=== PATIENT | male | born 1980 | race African-American/Black ===

== ENCOUNTER 2018-02-28 15:22 | Emergency (ER) | payer OTHER ==
[~2018-02-28] VITALS: Ht 177.8 cm; Wt 90.9 kg
[2018-02-28] MEDS ORDERED: NS 1,000 ML IV ONE (15:45)
[2018-02-28 16:06] LABS: BASO % 0.2 % (0.0-1.0); EOS % 0.4 % (0.0-3.0); HEMATOCRIT 43.6 % (42.0-52.0); HEMOGLOBIN 14.2 g/dl (13.5-17.5); LYMPH # 0.8 10^3/uL (1.5-4.5); LYMPH % 9.1 % (24.0-44.0); MEAN CORPUSCULAR HEMOGLOBIN 26.4 pg (27.0-33.0); MEAN CORPUSCULAR HGB CONC 32.6 g/dl (32.0-36.5); MONO # 0.5 10^3/uL (0.0-0.8); MONO % 5.1 % (0.0-5.0); NEUTROPHILS # 7.9 10^3/uL (1.8-7.7); NEUTROPHILS % 84.9 % (36.0-66.0); PLATELET COUNT, AUTOMATED 164 10^3/uL (150-450); RED BLOOD COUNT 5.38 10^6/uL (4.30-6.10); WHITE BLOOD COUNT 9.3 10^3/uL (4.0-10.0)
[2018-02-28 16:27] LABS: ALBUMIN 4.4 GM/DL (3.2-5.2); ALT/SGPT 24 U/L (12-78); BILIRUBIN,DIRECT 0.3 MG/DL (0.0-0.2); BILIRUBIN,TOTAL 1.8 MG/DL (0.2-1.0); BLOOD UREA NITROGEN 8 MG/DL (7-18); C REACTIVE PROTEIN QUANTITATIV 2.28 MG/DL (0.00-0.30); CALCIUM LEVEL 9.5 MG/DL (8.5-10.1); CARBON DIOXIDE LEVEL 30 MEQ/L (21-32); CHLORIDE LEVEL 101 MEQ/L (98-107); CREATININE FOR GFR 1.06 MG/DL (0.70-1.30); GLOMERULAR FILTRATION RATE > 60.0 (>60); GLUCOSE, FASTING 82 MG/DL (70-100); POTASSIUM SERUM 3.6 MEQ/L (3.5-5.1); SODIUM LEVEL 137 MEQ/L (136-145); TOTAL PROTEIN 7.3 GM/DL (6.4-8.2)
[2018-02-28] MEDS ORDERED: ISOVUE-370 76% 100ML VIAL (Q9967) As Ordered ONE (16:38)
[2018-02-28 17:53] LABS: ERYTHROCYTE SEDIMENTATION RATE 5 mm/hr (0-15)
[2018-02-28] MEDS ORDERED: dexameTHASONE 4 MG/ML 1ML VIAL (J1100) IV ONE (18:00)
[2018-02-28 18:03] LABS: MONO REFLEX EBV COMP NEGATIVE (NEGATIVE)
[2018-02-28] MEDS ORDERED: PRED20TA PO (18:15)
[2018-02-28] MEDS ORDERED: AUGM875T28 PO (18:18)
[2018-02-28 18:22] VITALS: BP 125/62
--- NOTE | 2018-03-01 06:53 | REP ---
Soft-tissue neck CT study: With IV contrast. Tree: Swelling in the throat. Rule out peritonsillar abscess. CT contrast dose: 75 ml of intravenous Isovue [address] findings: The right tonsil is enlarged compared to the left. There is a low-density 10 mm by 16 mm polyp along the posterior aspect of the uvula noted presumably incidentally. There is right retropharyngeal, right peritonsillar and right supraglottic edema and phlegmonous reaction with ill-defined low density areas in this distribution. No enhancing margin is seen to suggest a walled off abscess. Fairly extensive swelling is seen in this distribution on the right side of the neck and there is mild narrowing of the hypopharynx . The epiglottis has a normal thickness, but the right aryepiglottic fold is thickened. There is a low-density area in the right vallecula. Glottic and subglottic airway are unremarkable. Thyroid, submandibular, and parotid glands are normal and symmetric. Visualized paranasal sinuses are clear. Floor of mouth and tongue base are unremarkable. No cervical adenopathy is appreciated. Impression: Fairly extensive phlegmonous reaction in the right tonsil and peritonsillar soft tissues along the lateral pharyngeal wall extending down to the level of the vallecula with low-density swelling but without walled off enhancing margin to suggest mature abscess. Follow-up is suggested. Incidental note is made of a 9 mm by 16 mm presumed polyp associated with the posterior aspect of the uvula. Electronically Signed by Twin Aquino MD 03/01/2018 09:06 A
--- NOTE | 2018-03-02 06:58 | ED PDOC ---
Post-Departure Follow-Up ft dione fp faed formal report of ct neck for fu Ning Rosario MD Mar 02, 2018 06:58
[2018-03-05 00:10] LABS: EBV VIRAL CAPSID AG IgG >600.0 U/mL (0.0-17.9); EBV VIRAL CAPSID AG IgM <36.0 U/mL (0.0-35.9)
== END 2018-02-28 18:26 | disposition home or self-care (01) ==
LOC: M ED 15:22
DX: J03.90 Acute tonsillitis, unspecified (principal)
CPT/HCPCS: 36415; 70491; 80048; 80076; 83605; 85025; 85652; 86140; 86308; 86663; 86664; 86665; 87040; 96361; 96374; 99284; J1100; Q9967

== ENCOUNTER → 2018-02-28 | Outpatient (REF) | payer OTHER ==
[~2018-02-28] MED LIST: AUGM875T28 PO; PRED20TA PO
== END ==
LOC: M SFHCLERA 14:47
PROVIDERS: ATTEND Nurse Practitioner Family
DX: R53.81 Other malaise (principal)